=== PATIENT | female | born 1965 | race Caucasian/White ===

== ENCOUNTER 2023-11-05 15:32 | Emergency (ER) | payer BC, SELFPAY ==
[2023-11-05 16:04] VITALS: BP 108/55; PULSE 63; RESP 20; TEMP 36; O2SAT 99
--- NOTE | 2023-11-05 16:09 | ED.GENADULT ---
HPI - General Adult General Chief complaint: Wound/Laceration Stated complaint: blisterd on feet Time Seen by Provider: 11/05/23 16:09 Focused HPI: Ronna Valladares is a 58 y/o female with reports of having a blister to her right foot that started yesterday GENERAL: Well-appearing, well-nourished, and in no acute distress. HEAD: Normocephalic, atraumatic. CHEST: Clear to auscultation. ?No respiratory distress. HEART: Regular rate and rhythm.? NEURO: ?Alert and oriented x3. Patient screened in triage and initial orders placed.? ?Additional care and disposition to be based upon?diagnostic testing and treatment. History of Present Illness HPI narrative: 58 y/o female who presents wtih reports of doing a lot of walking yesterday and noticed today that she has a blister to the bottom of her right foot. No trauma/ known injury. No hx of DM not on any daily medications. Related Data Allergies Allergy/AdvReac Type Severity Reaction Status Date / Time No Known Allergies Allergy Verified 11/05/23 15:33 Review of Systems Review of Systems: All systems reviewed & are unremarkable except as noted in HPI and below PMFSH Family History Family History (Updated 03/31/16 @ 23:21 by DOCTOR UNKNOWN) Father Patient's father is in good health Family history of osteoarthritis Sibling Patient's sister is in good health Patient's brother is in good health Mother Hypertension Social History Social History Smoking status: Never smoker Alcohol intake: never Exam Const: General: healthy appearing, no acute distress and alert Nutritional Appearance: well nourished Limitations: no limitations HENMT: Head: normal to inspection Eyes: Conjunctivae: conjunctivae normal and conjunctival abnormality Pupils: Equal, round and reactive pupils present Neck: Neck: normal visual inspection Chest: Chest palpation & inspection: normal inspection of the chest Resp: Effort & Inspection: normal respiratory effort Auscultation: clear to auscultation bilaterally Cardio: Rate: regular rate Skin: General skin exam: normal color Rashes: no rashes Neuro: General: patient oriented x3 and moves all extremities Cranial nerves: Yes Nystagmus not present Psych: Mental Status: mental status grossly normal Course Vital Signs Vital signs: Vital Signs Temperature 36.0 C L 11/05/23 16:04 Pulse Rate 63 11/05/23 16:04 Respiratory Rate 20 11/05/23 16:04 Blood Pressure 108/55 L 11/05/23 16:04 Pulse Oximetry 99 11/05/23 16:04 Oxygen Delivery Room Air 11/05/23 16:04 Temperature 36.0 C L 11/05/23 16:04 Pulse Rate 63 11/05/23 16:04 Respiratory Rate 20 11/05/23 16:04 Blood Pressure 108/55 L 11/05/23 16:04 Pulse Oximetry 99 11/05/23 16:04 Oxygen Delivery Room Air 11/05/23 16:04 Medical Decision Making MDM Narrative Medical decision making narrative: Patient presents [facility] reports of having a blister to the bottom of her right foot after doing some walking yesterday. Denies any trauma or known injury There is about a 1 cm in diameter of a blister to the bottom of her right foot. No obvious deformity/ no erythema/ cellulitis/ ecchymosis ROM intact Neurovascular intact Medical Records Medical records reviewed: Yes I reviewed the external patient's medical records. Vital Signs Vital Signs: Vital Signs Temperature 36.0 C L 11/05/23 16:04 Pulse Rate 63 11/05/23 16:04 Respiratory Rate 20 11/05/23 16:04 Blood Pressure 108/55 L 11/05/23 16:04 Pulse Oximetry 99 11/05/23 16:04 Oxygen Delivery Room Air 11/05/23 16:04 Temperature 36.0 C L 11/05/23 16:04 Pulse Rate 63 11/05/23 16:04 Respiratory Rate 20 11/05/23 16:04 Blood Pressure 108/55 L 11/05/23 16:04 Pulse Oximetry 99 11/05/23 16:04 Oxygen Delivery Room Air 11/05/23 16:04 Vitals reviewed by me. Discharge Plan Discharge Clinical Impression: Blister Patient Disposition: Home, Self-Care
== END 2023-11-05 17:05 | disposition home or self-care (01) ==
PROVIDERS: Emergency Provider Nurse Practitioner Family
DX: S90.821A Blister (nonthermal), right foot, initial encounter (principal); X58.XXXA Exposure to other specified factors, initial encounter; Y93.01 Activity, walking, marching and hiking
CPT/HCPCS: 99282